=== PATIENT | female | born 1985 | race Caucasian/White ===

== ENCOUNTER → 2019-07-12 14:31 | Outpatient (BNVA) | payer MEDICAID, SELFPAY | PROVIDERS: Family Provider Family Medicine; PCP Family Medicine; Visit Provider Obstetrics & Gynecology | DX: R87.810 Cervical high risk human papillomavirus (HPV) DNA test positive (principal); R87.612 Low grade squamous intraepithelial lesion on cytologic smear of cervix (LGSIL) | CPT/HCPCS: 81025 ==

== ENCOUNTER → 2019-07-13 09:22 | Outpatient (BNVA) | payer MEDICAID, SELFPAY | PROVIDERS: Family Provider Family Medicine; PCP Family Medicine; Visit Provider Obstetrics & Gynecology | DX: R87.810 Cervical high risk human papillomavirus (HPV) DNA test positive (principal); R87.612 Low grade squamous intraepithelial lesion on cytologic smear of cervix (LGSIL) | CPT/HCPCS: 88305 ==

== ENCOUNTER → 2022-08-21 14:06 | Outpatient (BNVA) | payer MEDICAID, SELFPAY | PROVIDERS: Family Provider Family Medicine; PCP Nurse Practitioner Family; Visit Provider Emergency Medicine | DX: R30.0 Dysuria (principal); N30.01 Acute cystitis with hematuria | CPT/HCPCS: 81000 ==

== ENCOUNTER → 2023-03-07 14:59 | Outpatient (BNVA) | payer MEDICAID, SELFPAY | PROVIDERS: Family Provider Family Medicine; PCP Nurse Practitioner Family; Visit Provider Nurse Practitioner Family | DX: R07.9 Chest pain, unspecified (principal); R22.0 Localized swelling, mass and lump, head; R53.83 Other fatigue | CPT/HCPCS: 70260; 71046; 72040; 80053; 85025; 85651; 86140 ==

== ENCOUNTER 2023-10-16 13:21 | Emergency (ER) | payer MEDICAID, SELFPAY ==
[2023-10-16 13:30] VITALS: BP 164/83; PULSE 50; RESP 17; TEMP 36.6; O2SAT 100; BMI 29.2
--- NOTE | 2023-10-16 13:37 | ED_ITS ---
HPI - Wound/Laceration General: Chief Complaint: Wound/Laceration Stated Complaint: lac to right hand Time Seen by Provider: 10/16/23 13:33 History of Present Illness: 38-year-old female comes in today for ev aluation of injury to the right hand. Patient had cut herself on some hedge tremors on Tuesday. Patient had been evaluated at [facility] and sutures were placed in the middle finger. Patient comes in today for complaints of pain and some drainage from the wound. Patient denies any fever. Patient at this time is taking cephalexin for antibiotic. Patient denies any chronic medical problems. Review of Systems General: Reports: 10 or more systems reviewed and unremarkable except in HPI and below Skin/Breast: Reports: changing lesions [facility] ED PFS: Medical History Anxiety disorder Asthma Asthma, moderate persistent Back pain Bipolar disorder Degenerative joint disease Depression Hypovolemia Post-traumatic stress disorder, unspecified Syncope Surgical History History of carpal tunnel surgery Bilateral History of delivery x3 History of laminectomy Lumbar History of loop electrical excision procedure (LEEP) At age 18 at [facility], Dr. Parsons Family History Mother Depression Hypertension Anxiety disorder Sister Depression Anxiety disorder Father Hypertension Diabetes Family/Other Diabetes Paternal Aunt and Paternal Uncle Grandfather Cancer Maternal and Paternal Grandfather Emphysema lung Paternal Grandmother Heart disease Maternal Social History Smoking and tobacco/nicotine status: current every day tobacco/nicotine user cigarettes Packs smoked per day: 1 Alcohol intake: never Substance/Drug Use: never Number of children: 3 Sexually active: Yes Female Reproductive History: Para: 3 Spontaneous abortions: Yes (1) Physical Exam Const: COMMON NORMALS: alert HENMT: COMMON NORMALS: normocephalic HEAD & SCALP: normocephalic Neck/C-Spine: COMMON NORMALS: full ROM Chest: COMMONS NORMALS: normal inspection of the chest Resp: COMMON NORMALS: normal respiratory effort Cardio: COMMON NORMALS: regular rate RATE: regular rate GI: COMMON NORMALS: non-tender Back/Pelvis: COMMON NORMALS: thoracic and lumbar spine normal to inspection Extremity: NARRATIVE EXTREMITY EXAM: Patient has sutures intact to the right middle finger with no redness and minimal swelling. Cap refill is intact distally. No redness or streaking is going up the arm. Tendon function is intact. Patient also has a superficial laceration to the volar middle phalanx that has minimal swelling and no redness. RIGHT UPPER EXTREMITY: Yes hand & digits (Healing laceration with sutures intact to the middle phalanx volar side) Neuro: SENSORIUM/ORIENTATION: Yes alert Course Vital Signs: Vital signs: Vital Signs Temperature 97.8 F 10/16/23 13:30 Pulse Rate 50 L 10/16/23 13:30 Respiratory Rate 17 10/16/23 13:30 Blood Pressure 164/83 10/16/23 13:30 Pulse Oximetry 100 10/16/23 13:30 Oxygen Delivery Me thod Room Air 10/16/23 13:30 MDM - Wound/Laceration Medical Decision Making Patient comes in today for concerns of wounds to the right index and middle finger. Patient had a laceration occur on Tuesday while using hedge tremors. On exam patient has good tendon function. No redness or significant swelling is noted to the fingers. Cap refill is intact. Wounds are well-approximated. Differential diagnosis includes but not limited to tenosynovitis, wound infection, cellulitis. Exam does not show signs of tendon injury or severe infection at this time. Recommended patient continue care with cephalexin and wound management. Patient should follow-up with primary care in 7 days. Patient may benefit from evaluation by orthopedist for further concerns. Case management was requested to talk with orthopedics office to see if they would evaluate the wound` or refer to a hand resident care aide in [place]. Patient reports understanding of care plan and need for follow-up or return to the ER for high fever or redness of the wounds. No radiology studies performed this visit Discharge Plan Discharge Patient Disposition: Home Clinical Impression: Laceration of finger of right hand Qualifiers: Encounter type: initial encounter Finger: middle finger Damage to nail status: without damage Foreign body presence: unspecified Qualified Code(s): S61.212A - Laceration without foreign body of right middle finger without damage to nail, initial encounter Condition: Stable Prescriptions: New hydrocodone-acetaminophen 5-325 mg tablet 1 tab PO Q8H PRN (Reason: pain) Qty: 7 0RF No Action cetirizine 10 mg tablet 10 mg PO DAILY duloxetine 60 mg capsule,delayed release(DR/EC) 60 mg PO BID clonazepam 1 mg tablet 1 mg PO TID Combivent Respimat 20-100 mcg/actuation mist 2 puff INHALATION Q4H PRN Symbicort 160-4.5 mcg/actuation HFA aerosol inhaler 2 puff INHALATION BID fluticasone propionate 50 mcg/actuation spray,suspension 2 spray INTRANASAL DAILY acetaminophen 500 mg capsule 1,000 mg PO Q4H PRN Excedrin Migraine 250-250-65 mg tablet 1 tab PO ONCE PRN Discharge Orders: Discharge ED (Routine); Ordered 10/16/23 Ordered By: Shashank Tanner Referrals: Carlene Peters FNP [Primary Care Provider] - Discharge Diet: Usual diet Discharge Activity: Increase activity as tolerated Patient Instructions: Finger Laceration (ED) Activity Restrictions/Additional Instructions: Continue cephalexin as prescribed and for prophylaxis antibiotic. Use acetaminophen and ibuprofen to help control pain. Use hydrocodone for severe pain. Dressed wound if it becomes wet or soiled. Follow-up with primary care or specialist as needed. Return to ED for new concerns or worsening symptoms ridley ch as redness streaking up the arm, fever greater than 100.4. Coding Level of Care Code ED Security Systems Administrator for Chg Anna
[2023-10-16] MEDS: HYDROcodone-acetaminophen 5-325 mg Tablet 1 TAB PO (14:02)
[2023-10-16] MEDS: bacitracin ointment Pkt 1 EACH TOPICAL (14:02)
--- NOTE | 2023-10-17 07:33 | DCPLANNER ---
Message sent to Ortho for a follow up -
== END 2023-10-16 14:11 | disposition home or self-care (01) ==
PROVIDERS: Emergency Provider Nurse Practitioner Family; PCP Nurse Practitioner Family
DX: S61.212A Laceration without foreign body of right middle finger without damage to nail, initial encounter (principal); F17.210 Nicotine dependence, cigarettes, uncomplicated; W27.1XXA Contact with garden tool, initial encounter
CPT/HCPCS: 99283

== ENCOUNTER → 2024-01-10 10:54 | Outpatient (BNVA) | payer MEDICAID, SELFPAY | PROVIDERS: PCP Nurse Practitioner Family; Visit Provider Nurse Practitioner Family | DX: M25.40 Effusion, unspecified joint (principal); M25.539 Pain in unspecified wrist | CPT/HCPCS: 80053; 85025; 85651; 86140; 86160; 86162; 86235; 86255; 86376 ==

== ENCOUNTER 2024-03-01 10:42 | Outpatient (CLI) | payer MEDICAID, SELFPAY ==
--- NOTE | 2024-03-01 10:45 | MM_ITS ---
WS: [id number] BILATERAL 3D TOMOSYNTHESIS DIGITAL DIAGNOSTIC MAMMOGRAPHY WITH CAD CLINICAL INFORMATION: Bilateral BREAST LUMP HISTORY: Bilateral breast lumps COMPARISON: Baseline TECHNIQUE: Bilateral CC, MLO, and ML views. FINDINGS: The breasts are composed of nodular heterogeneous fibroglandular density, which can limit the detecti on of small underlying mass lesions. Palpable markers both breasts. Dense underlying parenchymal tiss ue. Ultrasound of both breasts pending. ULTRASOUND BREAST BILATERAL TECHNIQUE: Ultrasound bilateral breast focused area of concern. CLINICAL INFORMATION: LEFT BREAST LUMP FINDINGS: RIGHT BREAST: Ultrasound RIGHT breast area of concern 6 o'clock position 2 cm from the nipple. No suspicious findin gs in the area of concern RIGHT breast. LEFT BREAST: Ultrasound LEFT breast area of concern 3 o'clock position 2 cm from the nipple. Ovoid hypoechoic gent ly lobulated solid lesion may represent fibroadenoma in a patient this age, but technically indetermi ata. Recommend further evaluation with ultrasound-guided biopsy.. MM/[id number] IMPRESSION: DENSITY: The breasts are heterogeneously dense, which may obscure small masses. BI-RADS: 4 - Suspicious Finding - Biopsy Should Be Considered FOLLOW UP: US Guided Biopsy Recommended Recommend ultrasound-guided biopsy LEFT breast lesion
== END 2024-03-01 10:43 | disposition home or self-care (01) ==
LOC: RAD 10:43
PROVIDERS: PCP Nurse Practitioner Family; Visit Provider Nurse Practitioner Family
DX: N63.23 Unspecified lump in the left breast, lower outer quadrant (principal); R92.333 Mammographic heterogeneous density, bilateral breasts
CPT/HCPCS: 76642; 77062; G0279

== ENCOUNTER 2024-03-14 14:17 | Outpatient (CLI) | payer MEDICAID, SELFPAY ==
--- NOTE | 2024-03-14 14:24 | US_ITS ---
WS: [id number] ULTRASOUND-GUIDED LEFT BREAST BIOPSY CLINICAL INFORMATION: ABNORMAL MAMMOGRAM COMPARISON: 03/01/2024 FINDINGS: The procedure including risks, benefits, and complications were discussed with the patient who agreed to proceed. Using sterile technique patient was prepped and draped in the usual sterile fashion. Aft er 1% lidocaine utilizing real-time ultrasound guidance 4 14-gauge cores were obtained of the LEFT br east lesion at the 3 o'clock position 2 cm from the nipple. No clip was placed. No immediate complica tions. Pathology demonstrates fibroadenoma. Negative for malignancy. US/[id number] IMPRESSION: 1. Uncomplicated ultrasound-guided LEFT breast biopsy. 2. The pathology demonstrates fibroadenoma. Negative for malignancy. DENSITY: The breasts are heterogeneously dense, which may obscure small masses. BI-RADS: 2 - Benign FOLLOW UP: 1 Year Follow-up
== END 2024-03-14 14:18 | disposition home or self-care (01) ==
LOC: RAD 14:17
PROVIDERS: PCP Nurse Practitioner Family; Visit Provider Nurse Practitioner Family
DX: R92.8 Other abnormal and inconclusive findings on diagnostic imaging of breast (principal); N60.22 Fibroadenosis of left breast
CPT/HCPCS: 19083; 88305

== ENCOUNTER 2024-03-16 09:56 | Outpatient (CLI) | payer MEDICAID, SELFPAY ==
--- NOTE | 2024-03-16 09:59 | CT_ITS ---
WS: [id number] CT ABDOMEN AND PELVIS WITH CONTRAST HISTORY: GENERALIZED ABDOMINAL PAIN TECHNIQUE: Imaging performed of the abdomen and pelvis with IV contrast. Single phase imaging of the abdomen. Coronal and sagittal reformats are submitted. All CT scans at [facility] use at [address] one of these dose optimization techniques: automated exposure control; mA and/or kV adjustment per patient size (includes targeted exams where dose is matched to clinical indication); or iterative re construction. IV CONTRAST: Omnipaque 350; 100 mL IV. Oral contrast: No DLP: 272.73 mGy.cm COMPARISON: None available. Lower thorax: Lung bases are clear. Heart is normal size. No hiatal hernia. Liver/biliary system: Mildly enlarged liver with focal fatty sparing along the falciform ligament. Po daxa visualized portal vein. Gallbladder: Normal. No gallstones or wall thickening. No pericholecystic fluid. Pancreas: Normal size pancreas and pancreatic duct. No adjacent inflammation. Spleen: Normal size spleen. No mass or infarct. Adrenal glands: Normal. Right kidney: Normal. Left kidney: Normal. Aorta: Normal. Lymphadenopathy: None. Free fluid: None. GI tract: Stomach is nondistended. No small bowel obstruction. There is marked fecal retention and co nstipation. Most significant constipation in the RIGHT and transverse colon. No obstruction or coliti s. Abdominal wall: Unremarkable abdominal wall. No hernia. Pelvis: No free fluid or adenopathy within the pelvis. Uterus is normal size and midline. There is a small amount of fluid along the endometrial canal. The cervical junction is of decreased attenuation and bulky which may be normal for this patient. With history of pelvic pain and discomfort consider t ransvaginal evaluation of the cervix to exclude mass. Bones: Advanced degenerative changes at L5-S1. CT/CT abdomen pelvis w con* [id number] IMPRESSION: 1. Marked constipation greatest involving the ascending and transverse colon. No obstruction. 2. Increased increased bulky soft tissue with decreased attenuation involving the cervix. Consider further evaluation by transvaginal pelvic ultrasound imagi ng. 3. Hepatic steatosis with focal fatty sparing of the liver.
[2024-03-16] MEDS: iohexol 350 mg/mL 500 mL Btl (per mL) IV (11:14)
== END 2024-03-16 09:57 | disposition home or self-care (01) ==
PROVIDERS: PCP Nurse Practitioner Family; Visit Provider Nurse Practitioner Family
DX: K59.00 Constipation, unspecified (principal); R93.89 Abnormal findings on diagnostic imaging of other specified body structures; R10.2 Pelvic and perineal pain; R10.84 Generalized abdominal pain
CPT/HCPCS: 74177

== ENCOUNTER 2024-03-22 08:23 | Emergency (ER) | payer MEDICAID, SELFPAY ==
[2024-03-22 08:33] VITALS: BP 102/69; PULSE 56; RESP 16; TEMP 36.5; O2SAT 96; BMI 24.5
[2024-03-22 08:47] VITALS: BP 111/66; PULSE 57; RESP 16; O2SAT 96
[2024-03-22] MEDS: ondansetron 2 mg/ML SDV 2 mL 4 MG IVP (08:59)
[2024-03-22] MEDS: sodium chloride 0.9% 1,000 ML 999 ML IV (08:59)
--- NOTE | 2024-03-22 08:59 | ED_ITS ---
HPI - Abdominal Pain 2 General: Chief Complaint: Abdominal Pain Stated Complaint: abd pain Time Seen by Provider: 03/22/24 08:33 History of Present Illness: 38-year-old female who presents to the e mergency room complaints of abdominal pain and cramping. This been going on for a week or more. She is been seen by her primary care doctor she also has some COPD she has a chronic productive cough that she is also seen pulmonology for. She is had a CT done 6 days ago that showed marked constipation. She denies any medic easy melena hematemesis or coffee-ground emesis. Associated Symptoms: Reports constipation; Denies chills, dysuria and fever(s) Related Data Home Medications Medication Instructions Recorded Confirmed acetaminophen 500 mg capsule 1,000 mg PO Q4H PRN Pain 07/09/19 03/22/24 ipratropium 20 mcg-albuterol 100 2 puff inhalation Q4H PRN 07/09/19 03/22/24 mcg/actuation mist for inhalation Shortness Of Breath (Combivent Respimat) buprenorphine 8 mg-naloxone 2 mg 1 tab sublingual TID 03/22/24 03/22/24 sublingual tablet cetirizine 5 mg-pseudoephedrine ER 1 tab PO DAILY 03/22/24 03/22/24 120 mg tablet,extended release,12hr ciprofloxacin HCl 500 mg tablet 500 mg PO BID 03/22/24 03/22/24 modafinil 200 mg tablet 200 mg PO BID 03/22/24 03/22/24 psyllium husk 3.4 gram/5.4 gram 1 tsp PO BID 03/22/24 03/22/24 oral powder (Metamucil) Previous Rx's Medication Instructions Recorded lactulose 20 gram/30 mL oral 30 ml PO Q2H 24 hours #360 mL 03/22/24 solution Allergies Allergy/AdvReac Type Severity Reaction Status Date / Time topiramate [From Topamax] Allergy Intermediate ADR-Confusi Verified 01/16/24 17:44 on Review of Systems 2 Const: Denies: fever(s) or chills Card: Denies: chest pain Resp: Denies: dyspnea GI: Reports: abdominal pain and constipation : Denies: dysuria, urinary frequency or urinary urgency Musc: Denies: neck pain or back pain Skin/Breast: Denies: rash PFSH ED 2 PFSH: Medical History Back pain Syncope Hypovolemia Asthma, moderate persistent Asthma Post-traumatic stress disorder, unspecified Bipolar disorder Depression Anxiety disorder Degenerative joint disease Surgical History History of laminectomy Lumbar History of loop electrical excision procedure (LEEP) At age 18 at [facility], Dr. Parsons History of carpal tunnel surgery Bilateral History of delivery x3 Family History Mother Depression Hypertension Anxiety disorder Sister Depression Anxiety disorder Father Hypertension Diabetes Family/Other Diabetes Paternal Aunt and Paternal Uncle Grandfather Cancer Maternal and Paternal Grandfather Emphysema lung Paternal Grandmother Heart disease Maternal Social History Smoking and tobacco/nicotine status: former use of tobacco/nicotine Alcohol intake: never Substance/Drug Use: never Number of children: 3 Sexually active: Yes Female Reproductive History: Para: 3 Spontaneous abortions: Yes (1) Physical Exam 2 Const: COMMON NORMALS: no acute distress GENERAL APPEARANCE: cooperative and comfortable ORIENTATION/CONSCIOUSNESS: Yes awake, Yes oriented to person, Yes oriented to place and Yes oriented to time HENMT: COMMON NORMALS: normocephalic, atraumatic and hearing grossly normal bilaterally HEAD & SCALP: normocephalic and atraumatic Resp: COMMON NORMALS: normal respiratory effort, No retractions, No use of accessory muscles and clear to auscultation bilaterally AUSCULTATION: clear to auscultation bilaterally Cardio: COMMON NORMALS: regular rate, regular rhythm and No murmurs present (Cardio) RATE: regular rate RHYTHM: regular rhythm GI: COMMON NORMALS: Soft to palpation and No hepatosplenomegaly present A USCULTATION: Yes normoactive bowel sounds PALPATION: Yes Soft to palpation, No Tenderness to palpation present (GI), No Guarding due to palpation present (GI) and Yes No hepatosplenomegaly present Extremity: COMMON NORMALS: normal to inspection, capillary refill normal, no clubbing, cyanosis or edema, no calf tenderness and no pedal edema Neuro: SENSORIUM/ORIENTATION: Yes oriented to person, Yes oriented to place and Yes oriented to time Skin: COMMON NORMALS: no rashes or lesions noted GENERAL SKIN EXAM: no rashes or lesions noted Course 2 Vital Signs: Vital signs: Vital Signs Temperature 97.7 F 03/22/24 08:33 Pulse Rate 58 L 03/22/24 10:03 Respiratory Rate 16 03/22/24 10:03 Blood Pressure 111/62 03/22/24 10:03 Pulse Oximetry 98 03/22/24 10:03 Oxygen Delivery Me thod Room Air 03/22/24 10:03 MDM - Abdominal Pain Medical Decision Making Abdominal exam benign. White count normal no significant nausea chemistries reviewed the CT done 1 week ago. Given normal labs and relatively benign abdominal exam and do not think there is a significant amount of benefit in repeating CT there is also no significant finding on the UA. Reviewed findings with the patient. Discharge home she been using Metamucil to try to help with her constipation and instead she needs to use something more stimulating we will give her lactulose to use every 2 hours until achieves adequate results Lab Data 03/22/24 09:03 03/22/24 09:03 Labs/Radiology: Laboratory Results WBC 5.12 10^3/uL (3.29-11.43) 03/22/24 09:03 RBC 4.69 10^6/uL (3.85-5.65) 03/22/24 09:03 Hgb 15.20 g/dL (11.27-16.99) 03/22/24 09:03 Hct 44.4 % (36-47) 03/22/24 09:03 MCV 94.7 fl (85-98) 03/22/24 09:03 MCH 32.4 pg (27-33) 03/22/24 09:03 MCHC 34.2 g/dL (30-55) 03/22/24 09:03 RDW 11.2 % (12.1-15.1) L 03/22/24 09:03 Plt Count 337 10^3/cmm (157-399) 03/22/24 09:03 MPV 9.8 fL (7.4-10.4) 03/22/24 09:03 Neut % (Auto) 77.5 % 03/22/24 09:03 Lymph % (Auto) 12.9 % 03/22/24 09:03 Martin % (Auto) 4.7 % 03/22/24 09:03 Eos % (Auto) 3.9 % 03/22/24 09:03 Baso % (Auto) 0.8 % 03/22/24 09:03 Neut # (Auto) 3.97 10^3/uL (1.8-7.7) 03/22/24 09:03 Lymph # (Auto) 0.7 10^3/uL (0.8-4.8) L 03/22/24 09:03 Martin # (Auto) 0.2 10^3/uL (0.2-0.9) 03/22/24 09:03 Eos # (Auto) 0.2 10^3/uL (0.0-0.8) 03/22/24 09:03 Baso # (Auto) 0.0 10^3/uL (0.0-0.1) 03/22/24 09:03 Nucleated RBC % (auto) 0 % 03/22/24 09:03 Nucleated RBCs # 0.0 /100WBC 03/22/24 09:03 Sodium 138 mmol/L (136-145) 03/22/24 09:03 Potassium 4.0 mmol/L (3.5-5.1) 03/22/24 09:03 Chloride 99 mmol/L (98-107) 03/22/24 09:03 Carbon Dioxide 27 mmol/L (22-29) 03/22/24 09:03 Anion Gap 16.0 (5-19) 03/22/24 09:03 BUN 16 mg/dL (6-20) 03/22/24 09:03 Creatinine 0.7 mg/dL (0.5-0.9) 03/22/24 09:03 GFR Calculation 94.7 mL/min (90-130) 03/22/24 09:03 Glucose 102 mg/dL (65-115) 03/22/24 09:03 Calculated Osmolality 287 mOsm/kg (285-295) 03/22/24 09:03 Calcium 9.4 mg/dL (8.5-10.5) 03/22/24 09:03 Total Bilirubin 0.4 mg/dL (0.15-1.2) 03/22/24 09:03 AST 25 U/L (0-32) 03/22/24 09:03 ALT 19 U/L (0-33) 03/22/24 09:03 Alkaline Phosphatase 57 U/L (35-105) 03/22/24 09:03 Total Protein 7.4 g/dL (6.6-8.7) 03/22/24 09:03 Albumin 4.8 g/dL (3.5-5.2) 03/22/24 09:03 Globulin 2.6 g/dL (1.3-4.6) 03/22/24 09:03 Lipase 22 U/L (13-60) 03/22/24 09:03 HCG, Qual Negative (Negative) 03/22/24 09:03 Urine Color Yellow (Yellow) 03/22/24 10:25 Urine Appearance Cloudy (CLEAR) A 03/22/24 10:25 Urine pH 7.5 (5-7) 03/22/24 10:25 Ur Specific [employer] 1.006 (1.005-1.030) 03/22/24 10:25 Urine Protein Negative (Negative) 03/22/24 10:25 Urine Glucose (UA) Negative (Normal) 03/22/24 10:25 Urine Ketones Trace (Negative) 03/22/24 10:25 Urine Blood Negative (Negative) 03/22/24 10:25 Urine Nitrate Negative (Negative) 03/22/24 10:25 Urine Bilirubin Negative (Negative) 03/22/24 10:25 Urine Urobilinogen 0.2 mg/dL (Negative) 03/22/24 10:25 Ur Leukocyte Esterase Negative (Negative) 03/22/24 10:25 Urine RBC 0-2 /hpf (0-2) 03/22/24 10:25 Urine WBC 0-5 /hpf (0-5) 03/22/24 10:25 Ur Squamous Epith Cells 0-5 /hpf (0-5) 03/22/24 10:25 Amorphous Sediment Not Reportable 03/22/24 10:25 Urine Bacteria None seen /hpf (NONE) 03/22/24 10:25 Hyaline Casts 0-4 /lpf H 03/22/24 10:25 All radiology interpretation(s) finalized by discharge Discharge Plan Discharge Patient Disposition: Home Clinical Impression: Constipation Condition: Stable Prescriptions: New lactulose 20 gram/30 mL solution 30 ml PO Q2H 1 Days Qty: 360 0RF Rx Instructions: until desired laxative effect No Action Combivent Respimat 20-100 mcg/actuation mist 2 puff INHALATION Q4H PRN (Reason: Shortness Of Breath) acetaminophen 500 mg capsule 1,000 mg PO Q4H PRN (Reason: Pain) cetirizine-pseudoephedrine 5-120 mg tablet extended release 12 hr 1 tab PO DAILY ciprofloxacin HCl 500 mg tablet 500 mg PO BID modafinil 200 mg tablet 200 mg PO BID buprenorphine-naloxone 8-2 mg tablet, sublingual 1 tab SUBLINGUAL TID Metamucil 3.4 gram/5.4 gram Powder 1 tsp PO BID Rx Instructions: mix into at least 4 oz water or juice before administering Discharge Orders: Discharge ED (Routine); Ordered 03/22/24 Ordered By: Charly Frye Referrals: Carlene Peters FNP [Primary Care Provider] - Discharge Diet: Full LIquid Discharge Activity: Increase activity as tolerated Patient Instructions: Constipation (ED), Opioid Safety, Pain Management Coding Level of Care Code ED Healthcare Market Consultant for Jf Castillo
[2024-03-22 09:14] LABS: Basophils % 0.8 %; Eosinophils # 0.2 10^3/uL (0.0-0.8); Eosinophils % 3.9 %; Hematocrit 44.4 % (36-47); Lymphocytes # 0.7 10^3/uL (0.8-4.8); Lymphocytes % 12.9 %; Mean Corpuscular HGB Conc 34.2 g/dL (30-55); Mean Corpuscular Hemoglobin 32.4 pg (27-33); Mean Corpuscular Volume 94.7 fl (85-98); Mean Platelet Volume 9.8 fL (7.4-10.4); Monocytes # 0.2 10^3/uL (0.2-0.9); Monocytes % 4.7 %; Neutrophils # 3.97 10^3/uL (1.8-7.7); Neutrophils % 77.5 %; Nucleated Red Blood Cells % 0 %; Platelet Count 337 10^3/cmm (157-399); Red Blood Count 4.69 10^6/uL (3.85-5.65); Red Cell Distribution Width 11.2 % (12.1-15.1); White Blood Count 5.12 10^3/uL (3.29-11.43)
[2024-03-22 09:23] LABS: HCG, Serum Qual Negative (Negative)
[2024-03-22 09:36] LABS: Alanine Aminotransferase 19 U/L (0-33); Albumin Level 4.8 g/dL (3.5-5.2); Alkaline Phosphatase 57 U/L (35-105); Aspartate Amino Transferase 25 U/L (0-32); Blood Urea Nitrogen 16 mg/dL (6-20); Calcium 9.4 mg/dL (8.5-10.5); Carbon Dioxide 27 mmol/L (22-29); Chloride 99 mmol/L (98-107); Globulin 2.6 g/dL (1.3-4.6); Glomerular Filtration Rate 94.7 mL/min (90-130); Glucose 102 mg/dL (65-115); Lipase 22 U/L (13-60); Osmolality Calculated 287 mOsm/kg (285-295); Sodium 138 mmol/L (136-145); Total Bilirubin 0.4 mg/dL (0.15-1.2); Total Protein 7.4 g/dL (6.6-8.7)
[2024-03-22 10:03] VITALS: BP 111/62; PULSE 58; RESP 16; O2SAT 98
[2024-03-22 10:33] LABS: Bacteria Urine None Seen /hpf; Hyaline Casts Urine 0-4 /lpf; RBC Urine 0-2 /hpf (0-2); Squamous Epithelial Cell Urine 0-5 /hpf (0-5); WBC Urine 0-5 /hpf (0-5)
[2024-03-22 10:52] LABS: Add Urine Microscopic? YES; Bilirubin Urine Negative (Negative); Blood Urine Negative (Negative); Glucose Urine UA Negative (Normal); Ketones Urine Trace (Negative); Leukocyte Esterase Urine Negative (Negative); Nitrate Urine Negative (Negative); Protein Urine Negative (Negative); Specific Gravity, Urine 1.006 (1.005-1.030); Urine Appearance Cloudy (CLEAR); Urine Color Yellow (Yellow); Urobilinogen Urine 0.2 mg/dL (Negative); pH Urine 7.5 (5-7)
[2024-03-22 11:22] VITALS: BP 139/83; PULSE 87; RESP 16; O2SAT 98
== END 2024-03-22 11:30 | disposition home or self-care (01) ==
PROVIDERS: Emergency Provider Family Medicine; PCP Nurse Practitioner Family
DX: K59.00 Constipation, unspecified (principal); Z87.891 Personal history of nicotine dependence
CPT/HCPCS: 80053; 81001; 83690; 84703; 85025; 96361; 96374; 99284; J2405; J7030